=== PATIENT | male | born 1990 | race Caucasian/White ===

== ENCOUNTER 2024-04-13 11:27 | Emergency (ER) | payer BC, SELFPAY ==
[2024-04-13 11:30] VITALS: BP 141/79; PULSE 124; RESP 12; TEMP 37; O2SAT 97
--- NOTE | 2024-04-13 11:45 | DI.RAD_ITS ---
Exam(s) XR ELBOW LT COMPLETE EXAM: XR ELBOW LT COMPLETE CLINICAL HISTORY: fell on elbow, medial pain. TECHNIQUE: 2D digital imaging was performed. COMPARISON: No exams were available for comparison FINDINGS: 3 views No evidence of acute fracture nor prominent joint effusion. No swelling of the olecranon bursa. No loose intra-articular bodies. Epicondyles unremarkable. Radial head and neck appear intact. IMPRESSION: No acute osseous findings. DATA REPOSITORY: RADIATION DOSE DELIVERED:
--- NOTE | 2024-04-13 12:00 | ED.GENADUL_ITS ---
Discharge Plan Disposition Patient Disposition: Home Condition: Good Discharge Details Clinical Impression: Contusion of elbow, Ulnar nerve injury Primary Care Provider: Unknown,Unknown ED Provider: Sherry Drummond Home Meds and New Rx's Prescriptions: No Action No Known Home Meds Discharge Instructions Instructions: Acute Pain, Adult (DC) Additional Instructions: X-rays are reassuring, no evidence of fracture or dislocation. Encourage rest, ice, elevation. Tylenol and ibuprofen as needed for discomfort. Please take as directed on the packaging. Please encourage hydration. Please try to cut back on your caffeine as you are noted to be quite tachycardic when you came in. I have asked our care management to reach out to you with local primary care seen for follow-up about your elbow as well as establish local care. If you develop any new or worsening symptoms please seek care urgently once again. HPI General Date/Time Provider Initiated Documentation: 04/13/24 11:41 . Limitations to Documentation: no limitations . Information obtained by: patient, family and RN notes reviewed . History of Present Illness 34 year old M presents to the emergency department with the chief complaint of Left elbow pain, described as moderate, with intensity rated at 7. Quality is described as aching and sharp, and is localized to the left and upper extremity. Patient extremity. Patient started experiencing this day(s) (1) and it has been constant. Immobilization improves symptom(s), Movement worsens symptoms . Patient notes no other symptoms. (Reports occasional tingling but none currently). Patient did receive the following treatments prior to arrival, none Related Data Home Medications ?Medication ?Instructions ?Recorded ?Confirmed Unknown [No Known Home Meds] 04/13/24 04/13/24 Allergies Allergy/AdvReac Type Severity Reaction Status Date / Time No Known Allergies Allergy Unverified 04/13/24 11:33 General Stated Complaint: Orthopedic GIULIANO: 3 Review of Systems Constitutional Constitutional: Reports as per HPI, Denies fever(s), Denies headache(s) and Denies weakness ENT Ears, Nose, Mouth, and Throat: Denies headache(s) Cardiovascular Cardiovascular: Reports as per HPI Respiratory Respiratory: Reports as per HPI and Denies cough Musculoskeletal Musculoskeletal: Reports as per HPI Integumentary/Breasts Skin/Breast: Reports as per HPI, Denies rash and Denies wounds Neurologic Neurologic: Reports as per HPI, Denies headache(s), Denies paresthesias and Denies weakness Exam Const General: cooperative, healthy appearing, comfortable, no acute distress, well developed and well groomed Nutritional Appearance: average body habitus and well nourished Orientation: alert and awake Resp Effort & Inspection: normal respiratory effort, able to speak in complete sentences and no respiratory distress Cardio Rate: tachycardic Rhythm: regular rhythm Skin General skin exam: no rashes or lesions noted Lesions: no lesions Rashes: no rashes Trauma: no lacerations or abrasions Neuro General: patient alert and patient awake Cognition: normal cognition Speech: speech normal Gait: normal gait Motor: muscle tone normal throughout Sensory Exam: no sensory deficits noted Extrem Left upper extremity: normal to inspection, full ROM, normal capillary refill, no joint enlargement, elbow/forearm Details: normal to inspection, tenderness Location: of the medial epicondyle and normal ROM; no swelling, no unusual warmth, no abrasions, no lacerations, no ecchymosis, no crepitus and no deformity, wrist Details: normal to inspection, normal ROM, normal vascular exam and radial pulse present; no tenderness, no swelling and no deformity and hand Details: normal to inspection, normal capillary refill, neuromotor exam normal, neurosensory exam normal and no swelling; no tenderness Course Vital Signs Vital signs: Vital Signs Temperature 37.0 C 04/13/24 11:30 Pulse 124 H 04/13/24 11:30 Respiratory Rate 12 04/13/24 11:30 Blood Pressure 141/79 H 04/13/24 11:30 Pulse Oximetry 97 04/13/24 11:30 Temperature 37.0 C 04/13/24 11:30 Pulse 124 H 04/13/24 11:30 Respiratory Rate 12 04/13/24 11:30 Respiratory Effort Normal 04/13/24 11:35 Blood Pressure 141/79 H 04/13/24 11:30 Pulse Oximetry 97 04/13/24 11:30 Oxygen Delivery Method Room Air 04/13/24 11:30 Oxygen Flow Rate 0 04/13/24 11:30 Pain Level 7 04/13/24 11:30 Medical Decision Making Patient is a pleasant [id number] 34-year-old male, accompanied by significant other, with chief complaint of left elbow pain after rolling off the couch and landing on hardwood floor on his elbow last night. He reports is the only injury that he suffered. Indicates medial aspect of the left elbow as area of maximal tenderness. States that the pain can radiate down along the ulnar side of his hand. States that initially, he had had some numbness but this is since subsided. Sensation is intact. No opening of of the skin. Has not noted any significant weakness but does have pain in the elbow. On exam, patient appears nontoxic. He is tachycardic initially in the 120s, at 118 when I evaluated him, he states that he drank only coffee and is associating this with caffeine. He denies any chest pain or shortness of breath. Patient did drink alcohol last night as well. He has 2+ distal pulses. No appreciable deformity. Patient was questioning if his veins were more prominent on the left side but I do not objectively note this compared to the contralateral side. Intact capillary refill. No ecchymosis, deformity, swelling. He is point tender over the ulnar groove. He has pain with flexion of the left wrist along the medial side of the elbow. Sensation is intact. He is able to flex and extend against resistance, normal hook test, no indication of tricep rupture. Minimal discomfort along the lateral side of the elbow. Consider potential fracture. Will obtain x-ray to evaluate. Also considered him having hit a very sensitive area as it is directly over the ulnar nerve that he is indicated and his symptoms certainly correlate with this. I do not see any neurological deficit to suggest significant nerve damage. FINDINGS: 3 views No evidence of acute fracture nor prominent joint effusion. No swelling of the olecranon bursa. No loose intra-articular bodies. Epicondyles unremarkable. Radial head and neck appear intact. IMPRESSION: No acute osseous findings. Discussed the findings with the patient. He does not have a local primary care so we will help him establish 1. I encouraged rest, ice, elevation. Tylenol and ibuprofen as needed for discomfort. We discussed return precautions. I believe that his radiation of pain and intermittent sensory issues is associated with the ulnar nerve being inflamed given the area he hit but as these seem to be waxing and waning and I do not know any objective Deficits, I feel patient is safe to be discharged home with patient agrees with. He is not having any numbness currently. We discussed nerve irritation given the location in which she stroke, likely some swelling that is causing some compression here leading to his ulnar nerve symptoms. Encouraged rest, ice, elevation. Tylenol and or ibuprofen as needed for discomfort. Strict return precautions were discussed. Patient does not have primary care locally, advised her care management team to assist with establishing care and follow-up for the elbow. All questions and concerns were addressed and he is in agreement this plan. Quality:SDOH Health Related Social Needs: No Data to Display PFSH All Active Problems (Updated 04/13/24 @ 13:07 by LAURENT Lama) Ulnar nerve injury (Acute) Contusion of elbow (Acute) Social History Smoking/Tobacco Use Status: Current-Occasional Tobacco Type: cigars Smoking risk assessment performed?: Yes Alcohol Intake: current Alcohol Intake frequency: a few times a week Substance use type: does not use Housing: house Do you feel safe at home: Yes Do you feel safe in your relationship?: Yes
[2024-04-13] MEDS: Ibuprofen 600 MG TAB PO (12:18)
== END 2024-04-13 13:24 | disposition home or self-care (01) ==
PROVIDERS: Emergency Provider Physician Assistant
DX: S50.02XA Contusion of left elbow, initial encounter (principal); S44.02XA Injury of ulnar nerve at upper arm level, left arm, initial encounter; F17.290 Nicotine dependence, other tobacco product, uncomplicated; W08.XXXA Fall from other furniture, initial encounter; Y93.89 Activity, other specified; Y92.018 Other place in single-family (private) house as the place of occurrence of the external cause
CPT/HCPCS: 99283; 73080